=== PATIENT | male | born 1975 | race Caucasian/White ===

== ENCOUNTER 2017-03-21 07:16 | Emergency (ER) | payer SELFPAY ==
[2017-03-21 07:16] VITALS: BP 104/63
[2017-03-21 07:57] LABS: CALCIUM 8.8 mg/dL (8.5-10.1); CREATININE 1.1 mg/dL (0.7-1.3); GFR 73.8; POTASSIUM 3.9 mmol/L (3.5-5.1)
--- NOTE | 2017-03-21 07:58 | PHYS DOC ---
Past History Past Medical History: Anxiety, Depression, GERD, High Cholesterol Past Surgical History: No Surgical History Alcohol Use: None Drug Use: None Adult General Chief Complaint Chief Complaint: DENTAL PROBLEM HPI HPI 1-year-old male better in the history of methamphetamine addiction clean for 90 days until relapsed 1 week ago with single episode of methamphetamine use. Patient is currently under [place] [facility] [place]. He has poor dentition and has evolved a toothache in his right frontal maxillary distribution. Patient has some facial swelling and pain associated with that tooth. On on antibiotics. This morning is particularly painful and patient got lightheaded and a little bit sweaty. He denies headache or stiff neck. No chest pain or shortness of breath. No cough or fever. Chills sweats or shaking chills. Patient denies abdominal system and reports she has normal bowel and bladder habits. Currently he feels baseline however the tooth is still hurting. EMS was called because patient had gotten diaphoretic during his painful episode. Glucose was tested and was over 100. Review of Systems Review of Systems Constitutional: Denies fever or chills [] Eyes: Denies change in visual acuity, redness, or eye pain [] HENT: Denies nasal congestion or sore throat [] Respiratory: Denies cough or shortness of breath [] Cardiovascular: No additional information not addressed in HPI [] GI: Denies abdominal pain, nausea, vomiting, bloody stools or diarrhea [] : Denies dysuria or hematuria [] Musculoskeletal: Denies back pain or joint pain [] Integument: Denies rash or skin lesions [] Neurologic: Denies headache, focal weakness or sensory changes [] Endocrine: Denies polyuria or polydipsia [] Current Medications Current Medications Current Medications Medications (Trade) Dose Ordered Sig/Rajni Start Time Stop Time Status Last Admin Dose Admin Ketorolac Tromethamine (Toradol) 30 mg 1X ONCE 03/21/17 07:45 03/21/17 07:46 UNV Sodium Chloride 1,000 ml @ 1,000 mls/hr 1X ONCE 03/21/17 07:45 03/21/17 08:44 UNV Allergies Allergies Allergies Coded Allergies Type Severity Reaction Last Updated Verified No Known Drug Allergies 03/21/17 No Physical Exam Physical Exam L. Patient no acute distress baseline very poor dentition with multiple caries and partially edentulous. Tooth #7 with mild soft tissue swelling at the base. Positive tenderness with percussion. No mass or spontaneous purulent drainage. No fluctuance. Mild cheek swelling adjacent to this tooth. Painless extraocular muscle excursion and well-appearing patient with supple neck. Her exam benign Constitutional: Well developed, well nourished, no acute distress, non-toxic appearance. [] HENT: Normocephalic, atraumatic, bilateral external ears normal, oropharynx moist, no oral exudates, nose normal. [] Eyes: PERRLA, EOMI, conjunctiva normal, no discharge. [] Neck: Normal range of motion, no tenderness, supple, no stridor. [] Cardiovascular:Heart rate regular rhythm, no murmur [] Lungs & Thorax: Bilateral breath sounds clear to auscultation [] Abdomen: Bowel sounds normal, soft, no tenderness, no masses, no pulsatile masses. [] Skin: Warm, dry, no erythema, no rash. [] Back: No tenderness, no CVA tenderness. [] Extremities: No tenderness, no cyanosis, no clubbing, ROM intact, no edema. [] Neurologic: Alert and oriented X 3, normal motor function, normal sensory function, no focal deficits noted. [] Psychologic: Affect normal, judgement normal, mood normal. [] Current Patient Data Vital Signs Vital Signs Date Time Temp Pulse Resp B/P (MAP) Pulse Ox O2 Delivery O2 Flow Rate FiO2 03/21/17 07:16 98.2 71 18 99 Room Air EKG EKG EKG interpreted by me in normal sinus rhythm at 82 bpm normal axis no STEMI [] Radiology/Procedures Radiology/Procedures [] Course & Med Decision Making Course & Med Decision Making Pertinent Labs and Imaging studies reviewed. (See chart for details) [] Signs and symptoms consistent with vasovagal reaction with diaphoresis and brief hypotension in a patient with a toothache precipitated by a painful episode. Patient is normotensive now with vital signs stable and unremarkable. He is afebrile and well-appearing. No evidence of PREC[employer] HAND infection or bacteremia sirs or sepsis. No drainable abscess visualized patient's oropharyngeal exam is unremarkable. No stridor or voice changes. We'll check EKG i-STAT and hemoglobin to rule out contributory etiology for episode. IV fluid bolus will be administered as well as Pen-Vee K initial dose. No further workup or treatment will be indicated patient agrees with outpatient follow-up with dentist and will be a medical staff. Strict return precautions will be given Dragon Disclaimer Dragon Disclaimer This chart was dictated in whole or in part using Voice Recognition software in a busy, high-work load, and often noisy Emergency Department environment. It may contain unintended and wholly unrecognized errors or omissions. Departure Departure: Disposition: 01 HOME, SELF-CARE Condition: STABLE Patient Instructions: Dental Caries Additional Instructions: U have multiple cavities. By these cavities is causing and had a toothache. We presume this is from a dental infection below the gumline that is causing a small amount of swelling there is no abscess that needs to be drained at this time. Finished penicillin as prescribed 4 times a day for 10 days. Take 800 mg of ibuprofen every 6 hours and use Tylenol every 4 hours as needed for pain as well. Back on her face helpful symptoms of swelling or resolving. Follow-up with your dentist in 2 days and return immediately for new severe or worsening symptoms. Ulcer had findings consistent with a vasovagal reaction today. This is when anyone of a number of triggers in your case pain, causes her body to suddenly dropped her blood pressure. This is why he got sweaty and your blood pressure dropped. And itself a vasovagal episode is not threatening. Labs show that there was nothing else that contributed to this episode such as anemia, an abnormal heart rhythm, dehydration, etc. Eyes reveal improved after IV fluids is appropriate to have you finish her penicillin take meds as prescribed and follow-up with your dentist and your doctor in the next 1-2 days. Return immediately for new severe or worsening symptoms. Scripts Penicillin V Potassium (PENICILLIN V POTASSIUM) 500 Mg Tablet 1 TAB PO QID, #40 TAB Prov: SANTI GUERRA MD 03/21/17 SANTI GUERRA MD Mar 21, 2017 07:58
[2017-03-21] MEDS ORDERED: IV NORMAL SALINE 1,000ML 1,000 ML IV ONE (08:00)
[2017-03-21] MEDS ORDERED: KETOROLAC 30 MG/ML VIAL. IV ONE (08:00)
[2017-03-21] MEDS ORDERED: PENI500T PO (08:06)
[2017-03-21] MEDS ORDERED: PENICILLIN V K 250 MG TABLET. PO ONE (09:00)
--- NOTE | 2017-03-21 19:06 | EKG ---
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
== END 2017-03-21 09:00 | disposition home or self-care (01) ==
LOC: ER 07:16
DX: K02.9 Dental caries, unspecified (principal); E78.00 Pure hypercholesterolemia, unspecified; K21.9 Gastro-esophageal reflux disease without esophagitis; F41.9 Anxiety disorder, unspecified
CPT/HCPCS: 36415; 80048; 85018; 93005; 96361; 96374; 99285; J1885; J7030